=== PATIENT | male | born 1995 | race Asian ===

== ENCOUNTER 2016-11-09 20:00 | Emergency (ER) | payer OTHER ==
[~2016-11-09] VITALS: Ht 175.3 cm; Wt 87.0 kg
[2016-11-09 20:04] VITALS: Ht 175.3 cm; Wt 87.0 kg
[2016-11-09] MEDS ORDERED: BACTDS PO (21:40)
[2016-11-09] MEDS ORDERED: NAPR-688 PO (21:40)
[2016-11-09] MEDS ORDERED: HYDR-906 PO (21:40)
[2016-11-09] MEDS ORDERED: CEPH-443 PO (21:40)
--- NOTE | 2016-11-09 21:47 | ERD ---
ER Documentation Chief Complaint Date/Time DATE: 11/09/16 TIME: 21:43 Chief Complaint right ankle pain/ swelling since 2 days ago ,denies injury HPI 21-year-old male presents emergency room for right medial lower leg swelling, erythema and pain has been going on for 2 days. He believes his folliculitis. He 's had folliculitis on other parts of his leg. He suffers from eczema and 3 times now he has had an infection of his skin from it. Was given antibiotics previously and the other 2 episodes healed completely. He denies any fevers and chills. He is ambulatory but has some pain on ambulation. 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 ROS All systems reviewed and are negative except as per history of present illness. Medications Home Meds Active Scripts Naproxen* (Naproxen*) 500 Mg Tablet, 500 MG PO BID Y for q6, #20 TAB Prov:JEMAL SAEED DO 11/09/16 Hydrocodone/Acetaminophen ([place] 5-325 Tablet) 1 Each Tablet, 1 EACH PO Q6, #10 TAB Prov:JEMAL SAEED DO 11/09/16 Cephalexin* (Keflex*) 500 Mg Capsule, 500 MG PO QID for 10 Days, CAP Prov:JEMAL SAEED DO 11/09/16 Sulfamethoxazole-Trimethoprim* (Bactrim* DS) 800-160 Mg Tab, 1 TAB PO BID for 10 Days, TAB Prov:CHRISTOPHEJEMAL DO 11/09/16 Allergies Allergies: Coded Allergies: No Known Allergy (Unverified , 11/09/16) Physical Exam Vitals Vital Signs Date Time Temp Pulse Resp B/P Pulse Ox O2 Delivery O2 Flow Rate FiO2 11/09/16 20:04 97.7 108 20 153/65 100 Physical Exam Const: [] No distress Head: Atraumatic Skin: Tripoding patches on forearms and hands consistent with eczema Ext: No cyanosis, right lateral ankle with a 10 x 8 oval shaped area of erythema and induration, is a central area of approximately one half centimeter open lesion which is small amount of pus is expressed. No fluctuant areas. This area is warmer than surrounding skin. Neur: Awake and alert Procedures/MDM Patient with eczema and cellulitis of his right lower extremity. There is localized tenderness able to drain through an opening in the center. There is no fluctuance and little concern for deeper abscess that is not reached. Patient has no signs of sepsis isn't amenable to outpatient management with both Bactrim and Keflex for infection. Giving him some naproxen for the swelling inflammation and a few [place] case is very sincere severe pain. Mark giving him a work note for the next 3 days while he heals at his request. I have explained to him that if the area does not heal in the next couple of days she come back to the hospital and he will need IV antibiotics. I do believe he has an excellent chance of outpatient healing as this has worked for him on 2 other occasions. Discharge with primary care follow-up in the next 2-3 days. Departure Diagnosis: Primary Impression: Eczema Additional Impression: Abscess or cellulitis of leg Condition: Stable Patient Instructions: Cellulitis Referrals: [facility] YOU HAVE RECEIVED A MEDICAL SCREENING EXAM AND THE RESULTS INDICATE THAT YOU DO NOT HAVE A CONDITION THAT REQUIRES URGENT TREATMENT IN THE EMERGENCY DEPARTMENT. FURTHER EVALUATION AND TREATMENT OF YOUR CONDITION CAN WAIT UNTIL YOU ARE SEEN IN YOUR DOCTORS OFFICE WITHIN THE NEXT 1-2 DAYS. IT IS YOUR RESPONSIBILITY TO MAKE AN APPOINTMENT FOR [facility]. IF YOU HAVE A PRIMARY DOCTOR --you should call your primary doctor and schedule an appointment IF YOU DO NOT HAVE A PRIMARY DOCTOR YOU CAN CALL OUR PHYSICIAN REFERRAL HOTLINE AT IF YOU CAN NOT AFFORD TO SEE A PHYSICIAN YOU CAN CHOSE FROM THE FOLLOWING [facility] [address] [facility] [address] [facility] [facility] [address] [facility] [facility] [address] [facility] [facility] [address] [facility]. [facility]. [address] Additional Instructions: Call your primary care doctor TOMORROW for an appointment during the next 2-3 days.See the doctor sooner or return here if your condition worsens before your appointment time. JEMAL SAEED DO Nov 09, 2016 21:47
== END 2016-11-09 21:58 | disposition home or self-care (01) ==
LOC: EDSEX 20:00 → FTE 20:00
DX: L30.9 Dermatitis, unspecified (principal)
CPT/HCPCS: 99284